=== PATIENT | male | born 1975 | race Caucasian/White ===

== ENCOUNTER 2022-06-04 12:54 | Emergency (ER) | payer OTHER ==
[~2022-06-04] VITALS: Ht 188 cm; Wt 117.9 kg
--- NOTE | 2022-06-04 13:36 | ED General ---
General Chief Complaint: Chest Pain Stated Complaint: CHEST PAIN/NAUSEA/LOWER BACK PAIN Nursing Triage Note: PT AMBULATE TO ROOM 01 WITHOUT DIFFICULTY WITH C/O CHEST PAIN, N/V/D SINCE YESTERDAY. PT REPORTS TAKING IBUPROFEN FOR PAIN YESTERDAY. Source of Information: Patient Exam Limitations: No Limitations History of Present Illness Date Seen by Provider: Jun 04, 2022 Time Seen by Provider: 13:25 Initial Comments Patient is a 46-year-old male who presents to the emergency department for evaluation of both epigastric/lower chest pain that began yesterday as well as right flank pain that acutely began approximate 1 hour prior to arrival. He states the epigastric pain began last night while he and his were out eating. States the pain did not radiate he denies any shortness of air. States that pain is somewhat improved today and rather mild. States the flank pain is much more severe. States he also has pain in his right inguinal area. Denies any urinary symptoms or blood in the urine. States he has had some nausea without emesis that began when the flank pain started. Denies any diaphoresis or dependent edema. No history of heart or lung problems or kidney stones. Allergies and Home Medications Allergies Coded Allergies: No Known Drug Allergies (Unverified , 06/04/22) Patient Home Medication List Home Medication List Reviewed: Yes Hydrocodone Bit/Acetaminophen (HYDROcodone/APAP 5 MG/325 MG TAB) 1 Tab Tab, 1 TAB PO Q4H PRN for PAIN-MODERATE (5-7) Prescribed by: Estrella Herman on 06/04/22 1617 Tamsulosin HCl (Flomax) 0.4 Mg Cap, 0.4 MG PO DAILY Prescribed by: Estrella Herman on 06/04/22 1616 Review of Systems Review of Systems Constitutional: no symptoms reported EENTM: no symptoms reported Respiratory: no symptoms reported Cardiovascular: see HPI, chest pain Gastrointestinal: see HPI, abdominal pain, nausea, vomiting Musculoskeletal: no symptoms reported Skin: no symptoms reported Psychiatric/Neurological: No Symptoms Reported Hematologic/Lymphatic: No Symptoms Reported Immunological/Allergic: no symptoms reported Past Daohbjc-Dqqwql-Rbkzjj Hx Patient Social History Tobacco Use?: Yes Tobacco type used: Cigarettes Smoking Status: Current Everyday Smoker Smokeless Tobacco Frequency: Never a User Use of E-Cig and/or Vaping dev: No Use of E-Cig and/or Vaping Bryan: Never a User Substance use?: No Alcohol Use?: Yes Alcohol Frequency: Daily Physical Exam Vital Signs Vital Signs - First Documented 06/04/22 06/04/22 12:57 16:32 Temp 36.0 Pulse 61 Resp 19 B/P (MAP) 143/94 (110) Pulse Ox 98 O2 Delivery Room Air Capillary Refill : Less Than 3 Seconds Height, Weight, BMI Height: '" Weight: lbs. oz. kg; 33.00 BMI Method: General Appearance: No Apparent Distress, WD/WN HEENT: PERRL/EOMI, TMs Normal, Normal ENT Inspection, Pharynx Normal Neck: Normal Inspection, Non Tender, Supple Respiratory: Chest Non Tender, Lungs Clear, Normal Breath Sounds, No Accessory Muscle Use, No Respiratory Distress Cardiovascular: Regular Rate, Rhythm Gastrointestinal: Soft, Tenderness Extremity: Non Tender, No Calf Tenderness Neurologic/Psychiatric: Alert, Oriented x3, No Motor/Sensory Deficits, Normal Mood/Affect, shipping receiving clerk II-XII Norm as Tested Skin: Normal Color, Warm/Dry Progress/Results/Core Measures Suspected Sepsis SIRS Temperature: Pulse: 61 Respiratory Rate: 19 Laboratory Tests 06/04/22 13:06: White Blood Count 7.5 Blood Pressure 143 /94 Mean: 110 Laboratory Tests 06/04/22 13:06: Creatinine 1.15, INR Comment 1.0, Platelet Count 256, Total Bilirubin 1.0 Results/Orders Lab Results Laboratory Tests Test 06/04/22 13:06 06/04/22 15:15 Range/Units White Blood Count 7.5 4.3-11.0 10^3/uL Red Blood Count 5.16 4.30-5.52 10^6/uL Hemoglobin 15.6 13.3-17.7 g/dL Hematocrit 44 40-54 % Mean Corpuscular Volume 86 80-99 fL Mean Corpuscular Hemoglobin 30 25-34 pg Mean Corpuscular Hemoglobin Concent 35 32-36 g/dL Red Cell Distribution Width 12.5 10.0-14.5 % Platelet Count 256 130-400 10^3/uL Mean Platelet Volume 11.2 9.0-12.2 fL Immature Granulocyte % (Auto) 0 % Neutrophils (%) (Auto) 64 42-75 % Lymphocytes (%) (Auto) 23 12-44 % Monocytes (%) (Auto) 8 0-12 % Eosinophils (%) (Auto) 4 0-10 % Basophils (%) (Auto) 1 0-10 % Neutrophils # (Auto) 4.8 1.8-7.8 10^3/uL Lymphocytes # (Auto) 1.7 1.0-4.0 10^3/uL Monocytes # (Auto) 0.6 0.0-1.0 10^3/uL Eosinophils # (Auto) 0.3 0.0-0.3 10^3/uL Basophils # (Auto) 0.0 0.0-0.1 10^3/uL Immature Granulocyte # (Auto) 0.0 0.0-0.1 10^3/uL Prothrombin Time 14.1 12.2-14.7 SEC INR Comment 1.0 0.8-1.4 Activated Partial Thromboplast Time 26 24-35 SEC Sodium Level 141 135-145 MMOL/L Potassium Level 3.8 3.6-5.0 MMOL/L Chloride Level 108 H 98-107 MMOL/L Carbon Dioxide Level 23 21-32 MMOL/L Anion Gap 10 5-14 MMOL/L Blood Urea Nitrogen 22 H 7-18 MG/DL Creatinine 1.15 0.60-1.30 MG/DL Estimat Glomerular Filtration Rate 79 BUN/Creatinine Ratio 19 Glucose Level 126 H 70-105 MG/DL Calcium Level 9.6 8.5-10.1 MG/DL Corrected Calcium 9.2 8.5-10.1 MG/DL Magnesium Level 1.9 1.6-2.4 MG/DL Total Bilirubin 1.0 0.1-1.0 MG/DL Aspartate Amino Transf (AST/SGOT) 19 5-34 U/L Alanine Aminotransferase (ALT/SGPT) 26 0-55 U/L Alkaline Phosphatase 59 40-136 U/L Troponin I < 0.028 <0.028 NG/ML Total Protein 7.1 6.4-8.2 GM/DL Albumin 4.5 3.2-4.5 GM/DL Urine Color YELLOW Urine Clarity CLEAR Urine pH 6.0 5-9 Urine Specific [place] 1.020 1.016-1.022 Urine Protein 1+ H NEGATIVE Urine Glucose (UA) NEGATIVE NEGATIVE Urine Ketones TRACE H NEGATIVE Urine Nitrite NEGATIVE NEGATIVE Urine Bilirubin NEGATIVE NEGATIVE Urine Urobilinogen 0.2 < = 1.0 MG/DL Urine Leukocyte Esterase NEGATIVE NEGATIVE Urine RBC (Auto) 3+ H NEGATIVE Urine RBC 5-10 H /HPF Urine WBC 2-5 /HPF Urine Squamous Epithelial Cells RARE /HPF Urine Crystals NONE /LPF Urine Bacteria FEW H /HPF Urine Casts NONE /LPF Urine Mucus LARGE H /LPF Urine Culture Indicated YES Micro Results Microbiology 06/04/22 Urine Culture - Final, Complete NO GROWTH My Orders Orders - ESTRELLA HERMAN FOURTH HAND Cbc With Automated Diff (06/04/22 13:31) Magnesium (06/04/22 13:31) Chest 1 View, Ap/Pa Only (06/04/22 13:31) Comprehensive Metabolic Panel (06/04/22 13:31) Protime With Inr (06/04/22 13:31) Partial Thromboplastin Time (06/04/22 13:31) Ed Iv/Invasive Line Start (06/04/22 13:31) Troponin I Taliaferro (06/04/22 13:31) Ua Culture If Indicated (06/04/22 13:31) Ct Abd/Pelvis Wo(Kidney Stone) (06/04/22 13:31) Ketorolac Injection (Toradol Injection) (06/04/22 15:15) Urine Culture (06/04/22 15:15) Medications Given in ED Vital Signs/I&O 06/04/22 06/04/22 12:57 16:32 Temp 36.0 36.7 Pulse 61 94 Resp 19 16 B/P (MAP) 143/94 (110) 137/88 Pulse Ox 98 O2 Delivery Room Air Room Air Capillary Refill : Less Than 3 Seconds Blood Pressure Mean: 110 Progress Note : Progress Note Patient is nontoxic and well-hydrated on exam. No adventitious lung sounds or increased work of breathing noted. Vital signs are reassuring. Patient does have some very mild epigastric tenderness to palpation. He also has more significant right flank tenderness to palpation. Laboratory evaluation overall reassuring. Also has scant hematuria. EKG without acute ischemic change or arrhythmia. Chest x-ray notable for some tortuosity of the aorta. There is no indication this is having any clinical relevance to patient's symptoms at this time. He was informed of these findings and told to follow-up with PCP. Patient had spontaneous improvement in the flank pain. CT scan showed a right mid ureter calculi. This is likely the source of patient's flank pain. Patient was given a dose of ketorolac in the ER. Patient's epigastric pain likely GI in source as it was related to eating and patient did take some antacids afterwards with some improvement in pain noted he will be discharged home with recommendations for supportive care. Anticipatory guidance discussed. Follow- up with PCP. Return precautions for symptomology discussed. Patient verbalized understanding. ECG EKG : EKG Time: 13:00 Rate: 62 Rhythm: Normal Sinus ECG Impression: 1st Degree AV Block Departure Impression Primary Impression: Left ureteral stone Disposition: HOME, SELF-CARE Condition: Stable Departure-Patient Inst. Decision time for Depature: 16:10 Patient Instructions: Kidney Stone, Adult ED Scripts Tamsulosin HCl (Flomax) 0.4 Mg Cap 0.4 MG PO DAILY for 7 Days, #7 CAP 0 Refills Prov: ESTRELLA HERMAN APRN 06/04/22 Hydrocodone Bit/Acetaminophen (HYDROcodone/APAP 5 MG/325 MG TAB) 1 Tab Tab 1 TAB PO Q4H PRN for PAIN-MODERATE (5-7) for 3 Days, #18 TAB 0 Refills Prov: ESTRELLA HERMAN APRN 06/04/22 ESTRELLA HERMAN APRN Jun 04, 2022 13:36
[2022-06-04 13:47] LABS: BASOPHILS % (AUTO) 1 % (0-10); EOSINOPHILS # (AUTO) 0.3 10^3/uL (0.0-0.3); EOSINOPHILS % (AUTO) 4 % (0-10); HEMATOCRIT 44 % (40-54); HEMOGLOBIN 15.6 g/dL (13.3-17.7); LYMPHOCYTES # (AUTO) 1.7 10^3/uL (1.0-4.0); LYMPHOCYTES % (AUTO) 23 % (12-44); MEAN CORPUSCULAR HEMOGLOBIN 30 pg (25-34); MEAN CORPUSCULAR HGB CONC 35 g/dL (32-36); MEAN CORPUSCULAR VOLUME 86 fL (80-99); MEAN PLATELET VOLUME 11.2 fL (9.0-12.2); MONOCYTES # (AUTO) 0.6 10^3/uL (0.0-1.0); MONOCYTES % (AUTO) 8 % (0-12); NEUTROPHILS # (AUTO) 4.8 10^3/uL (1.8-7.8); NEUTROPHILS % (AUTO) 64 % (42-75); PLATELET COUNT 256 10^3/uL (130-400); WHITE BLOOD COUNT 7.5 10^3/uL (4.3-11.0)
[2022-06-04 13:49] LABS: ALBUMIN 4.5 GM/DL (3.2-4.5)
[2022-06-04 13:50] LABS: POTASSIUM 3.8 MMOL/L (3.6-5.0)
[2022-06-04 13:51] LABS: CALCIUM 9.6 MG/DL (8.5-10.1)
[2022-06-04 13:52] LABS: TOTAL PROTEIN 7.1 GM/DL (6.4-8.2)
[2022-06-04 13:54] LABS: PROTHROMBIN TIME PATIENT 14.1 SEC (12.2-14.7)
[2022-06-04 13:56] LABS: CREATININE SERUM 1.15 MG/DL (0.60-1.30)
[2022-06-04 13:59] LABS: MAGNESIUM 1.9 MG/DL (1.6-2.4)
--- NOTE | 2022-06-04 14:19 | Diagnostic Imaging Report ---
Indication: Chest pain. Findings: The lungs are clear, heart size is probably within the upper limits of normal, may be mildly enlarged. There is some prominence of the mediastinal contour along the ascending aorta, this vessel may be tortuous or ectatic. I have no priors to assess its stability. Acute aortic syndrome is among the working diagnostic considerations given its prominence. Consider CT angiogram chest as further evaluation if warranted. No findings of pneumonia, edema or overt failure. Impression: No acute finding apparent but we note prominence of the ascending aortic contour either reflecting a tortuous or ectatic vessel, correlate clinically. Dictated by: Dictated on workstation # [id number]
--- NOTE | 2022-06-04 14:56 | Diagnostic Imaging Report ---
PROCEDURE: CT urinary tract, rule out kidney stone. TECHNIQUE: Multiple contiguous axial images were obtained through the abdomen and pelvis without the use of intravenous contrast. Auto Exposure Controls were utilized during the CT exam to meet ALARA standards for radiation dose reduction. INDICATION: Right flank pain. FINDINGS: There is mild hydronephrosis on the right. There is a 3 mm calculus in the mid right ureter. No calculi are seen within the kidneys. The lung bases are clear. The liver shows a small cyst along the inferior portion measuring 1 cm. Gallbladder is absent. Bile ducts are not dilated. Pancreas is atrophic. Spleen is normal. The adrenal glands are not enlarged. Aorta and abdominal vessels appear normal. The stomach and small bowel are not distended. The colon shows normal stool and gas pattern. There is diverticulosis of the sigmoid colon without diverticulitis. The appendix is visualized and normal. No intra-abdominal adenopathy of pathologic size. No free air or free fluid. IMPRESSION: 1. Mild hydronephrosis right kidney with a 3 mm calculus in the mid right ureter. Dictated by: Dictated on workstation # [id number]
[2022-06-04] MEDS ORDERED: KETOROLAC 15 MG/ML VIAL IVP ONE (15:15)
[2022-06-04 15:27] LABS: BILIRUBIN,URINE NEGATIVE (NEGATIVE); CLARITY,URINE CLEAR; COLOR,URINE YELLOW; GLUCOSE, URINE (UA) NEGATIVE (NEGATIVE); KETONES,URINE TRACE (NEGATIVE); LEUKOCYTE ESTERASE ,URINE NEGATIVE (NEGATIVE); NITRITE,URINE NEGATIVE (NEGATIVE); PROTEIN,URINE 1+ (NEGATIVE)
[2022-06-04 16:00] LABS: BACTERIA,URINE FEW /HPF; SQUAMOUS EPITHELIAL CELL,UR RARE /HPF
[2022-06-04] MEDS ORDERED: ACHD5005 PO (16:16)
[2022-06-04] MEDS ORDERED: TMSL.4C PO (16:16)
[2022-06-04 16:32] VITALS: BP 137/88
== END 2022-06-04 16:33 | disposition home or self-care (01) ==
LOC: ER 12:57
DX: N13.2 Hydronephrosis with renal and ureteral calculous obstruction (principal); Q25.46 Tortuous aortic arch; F17.210 Nicotine dependence, cigarettes, uncomplicated; Z28.310 Unvaccinated for COVID-19
CPT/HCPCS: 36415; 71045; 74176; 80053; 81000; 83735; 84484; 85025; 85610; 85730; 87088; 93005

== ENCOUNTER 2022-08-13 10:50 | Emergency (ER) | payer OTHER ==
[~2022-08-13 10:50] MED LIST: ACHD5005 PO; TMSL.4C PO
[2022-08-13] MEDS ORDERED: NS IV 1000 ML 1,000 ML IV SCH (11:15)
[2022-08-13] MEDS ORDERED: ONDANSETRON 4 MG/2 ML (SDV) Z0FRAN IVP ONE (11:15)
[2022-08-13] MEDS ORDERED: KETOROLAC 30 MG/ML VIAL IVP ONE (11:15)
--- NOTE | 2022-08-13 11:15 | ED GU-Male ---
General Chief Complaint: Back Problems Stated Complaint: LOWER BACK PAIN | POSSIBLE RECURRING KIDNEY STONE Nursing Triage Note: PT AMB TO RM 7 WITH C/O N/V, ABD PAIN AND R FLANK PAIN. PT HAS CYSTOSCOPY SCHEDULED FOR NEXT TUESDAY AT [facility] TO RETREIVE STONE Source: patient Exam Limitations: no limitations History of Present Illness Date Seen by Provider: Aug 13, 2022 Time Seen by Provider: 11:05 Initial Comments 46-year-old male presents the ED with complaints of right flank and right groin pain starting at 2:30 this morning. States he was also having lower abdominal pain that has now dissipated. Also reports nausea and vomiting, and dysuria. States he was diagnosed with a kidney stone in May, does not think that he has passed this kidney stone. He is supposed to see Dr. Quiñonez at [facility] next week for a cystourethroscopy. His urologist is Dr. Young at [facility]. He also complains of right testicle pain, states he did not have this pain previously with a kidney stone. Denies swelling of the testicle. Denies fevers, chest pain, shortness of air, hematuria. Past medical history includes kidney stone, arthritis. Currently takes Flomax and meloxicam. Allergies and Home Medications Allergies Coded Allergies: morphine (Verified Allergy, Unknown, 08/13/22) Patient Home Medication List Home Medication List Reviewed: Yes Hydrocodone Bit/Acetaminophen (HYDROcodone/APAP 5 MG/325 MG TAB) 1 Tab Tab, 1 TAB PO Q4H PRN for PAIN-MODERATE (5-7) Prescribed by: Raheem Herman on 06/04/22 1617 Oxycodone HCl/Acetaminophen (Percocet 5-325 mg Tablet) 5 Mg-325 Mg Tablet, 1 TAB PO Q4H PRN for PAIN-MODERATE Prescribed by: Julissa Alanis on 08/13/22 1233 Tamsulosin HCl (Flomax) 0.4 Mg Cap, 0.4 MG PO DAILY Prescribed by: Raheem Herman on 06/04/22 1616 Discontinued Medications Oxycodone HCl/Acetaminophen (Percocet 5-325 mg Tablet) 5 Mg-325 Mg Tablet, 1 TAB PO Q4H PRN for PAIN-MODERATE Discontinued Reason: Prescription changed Prescribed by: Julissa Alanis on 08/13/22 1225 Oxycodone HCl/Acetaminophen (Percocet 5-325 mg Tablet) 5 Mg-325 Mg Tablet, 1 TAB PO Q4H PRN for PAIN-MODERATE Discontinued Reason: Prescription changed Prescribed by: Julissa Alanis on 08/13/22 1227 Review of Systems Review of Systems Constitutional: see HPI Past Ravqftn-Bkrseb-Zntuwj Hx Patient Social History Tobacco Use?: No Use of E-Cig and/or Vaping dev: No Substance use?: No Alcohol Use?: Yes Alcohol Frequency: Once in a while Pt feels they are or have been: No Immunizations Up To Date Influenza Vaccine Up-to-Date: No; Not Current First/Initial COVID19 Vaccinat: DENIES Past Medical History Surgery/Hospitalization HX: KIDNEY STONES Physical Exam Vital Signs Vital Signs - First Documented 08/13/22 11:00 Temp 36.5 Pulse 74 Resp 18 B/P (MAP) 142/99 (113) Capillary Refill : Height, Weight, BMI Height: '" Weight: lbs. oz. kg; 33.00 BMI Method: General Appearance: WD/WN, mild distress Neck: supple, normal inspection Cardiovascular: regular rate, rhythm, no edema, no gallop, no JVD, no murmur Respiratory: lungs clear, normal breath sounds, no respiratory distress, no accessory muscle use Gastrointestinal: normal bowel sounds, non tender, soft, no organomegaly, no pulsatile mass Male: normal genitalia, testicular tenderness (Right testicle mildly tender to palpation, pain does not improve with elevation of right testicle. Testicles a ppear similar.) Back: normal inspection Extremities: normal range of motion, normal inspection Neurologic/Psychiatric: alert, normal mood/affect Skin: normal color, warm/dry Progress/Results/Core Measures Suspected Sepsis SIRS Temperature: Pulse: 74 Respiratory Rate: 18 Laboratory Tests 08/13/22 11:10: White Blood Count 8.4 Blood Pressure 142 /99 Mean: 113 Laboratory Tests 08/13/22 11:10: Creatinine 1.02, Platelet Count 224, Total Bilirubin 0.8 Results/Orders Lab Results Laboratory Tests Test 08/13/22 11:10 08/13/22 11:40 Range/Units White Blood Count 8.4 4.3-11.0 10^3/uL Red Blood Count 5.30 4.30-5.52 10^6/uL Hemoglobin 16.2 13.3-17.7 g/dL Hematocrit 47 40-54 % Mean Corpuscular Volume 88 80-99 fL Mean Corpuscular Hemoglobin 31 25-34 pg Mean Corpuscular Hemoglobin Concent 35 32-36 g/dL Red Cell Distribution Width 13.2 10.0-14.5 % Platelet Count 224 130-400 10^3/uL Mean Platelet Volume 10.7 9.0-12.2 fL Immature Granulocyte % (Auto) 0 % Neutrophils (%) (Auto) 68 42-75 % Lymphocytes (%) (Auto) 21 12-44 % Monocytes (%) (Auto) 8 0-12 % Eosinophils (%) (Auto) 2 0-10 % Basophils (%) (Auto) 0 0-10 % Neutrophils # (Auto) 5.7 1.8-7.8 10^3/uL Lymphocytes # (Auto) 1.8 1.0-4.0 10^3/uL Monocytes # (Auto) 0.7 0.0-1.0 10^3/uL Eosinophils # (Auto) 0.2 0.0-0.3 10^3/uL Basophils # (Auto) 0.0 0.0-0.1 10^3/uL Immature Granulocyte # (Auto) 0.0 0.0-0.1 10^3/uL Sodium Level 140 135-145 MMOL/L Potassium Level 3.9 3.6-5.0 MMOL/L Chloride Level 109 H 98-107 MMOL/L Carbon Dioxide Level 19 L 21-32 MMOL/L Anion Gap 12 5-14 MMOL/L Blood Urea Nitrogen 24 H 7-18 MG/DL Creatinine 1.02 0.60-1.30 MG/DL Estimat Glomerular Filtration Rate 91 BUN/Creatinine Ratio 24 Glucose Level 132 H 70-105 MG/DL Calcium Level 8.9 8.5-10.1 MG/DL Corrected Calcium 8.6 8.5-10.1 MG/DL Total Bilirubin 0.8 0.1-1.0 MG/DL Aspartate Amino Transf (AST/SGOT) 25 5-34 U/L Alanine Aminotransferase (ALT/SGPT) 28 0-55 U/L Alkaline Phosphatase 52 40-136 U/L Total Protein 7.2 6.4-8.2 GM/DL Albumin 4.4 3.2-4.5 GM/DL Urine Color YELLOW Urine Clarity CLEAR Urine pH 6.0 5-9 Urine Specific [place] >=1.030 1.016-1.022 Urine Protein 2+ H NEGATIVE Urine Glucose (UA) NEGATIVE NEGATIVE Urine Ketones NEGATIVE NEGATIVE Urine Nitrite NEGATIVE NEGATIVE Urine Bilirubin 1+ H NEGATIVE Urine Urobilinogen 0.2 < = 1.0 MG/DL Urine Leukocyte Esterase NEGATIVE NEGATIVE Urine RBC (Auto) 3+ H NEGATIVE Urine RBC >100 H /HPF Urine WBC 0-2 /HPF Urine Squamous Epithelial Cells RARE /HPF Urine Crystals NONE /LPF Urine Bacteria TRACE /HPF Urine Casts NONE /LPF Urine Mucus MODERATE H /LPF Urine Yeast FEW H /HPF Urine Culture Indicated YES My Orders Orders - JULISSA ALANIS APRN Ua Culture If Indicated (08/13/22 10:55) Comprehensive Metabolic Panel (08/13/22 11:12) Cbc With Automated Diff (08/13/22 11:12) Ketorolac Injection (Toradol Injection) (08/13/22 11:15) Ondansetron Injection (Zofran Injectio (08/13/22 11:15) Ed Iv/Invasive Line Start (08/13/22 11:15) Ns Iv 1000 Ml (Sodium Chloride 0.9%) (08/13/22 11:15) Ns Iv 1000 Ml (Sodium Chloride 0.9%) (08/13/22 11:16) Ct Abd/Pelvis Wo(Kidney Stone) (08/13/22 11:24) Fentanyl Inj (Sublimaze Injection) (08/13/22 11:45) Urine Culture (08/13/22 11:40) Medications Given in ED Current Medications Medications Dose Ordered Sig/Foreign Route Start Time Stop Time Status Last Admin Dose Admin Fentanyl Citrate 75 mcg ONCE ONCE IVP 08/13/22 11:45 08/13/22 11:46 DC 08/13/22 11:37 75 MCG Ketorolac Tromethamine 15 mg ONCE ONCE IVP 08/13/22 11:15 08/13/22 11:16 DC 08/13/22 11:19 15 MG Ondansetron HCl 4 mg ONCE ONCE IVP 08/13/22 11:15 08/13/22 11:16 DC 08/13/22 11:19 4 MG Vital Signs/I&O 08/13/22 11:00 Temp 36.5 Pulse 74 Resp 18 B/P (MAP) 142/99 (113) Capillary Refill : Blood Pressure Mean: 113 Progress Note #1: Time: 11:21 Progress Note Patient seen and evaluated, resting in bed, mild distress. Based on exam and symptoms, concern for kidney stone again. Work-up initiated including CBC, CMP, UA with culture, KUB x-ray. Toradol, Zofran, and IV fluids ordered. Considered ultrasound of testicles due to testicular pain, deferred due to normal-appearing testicle, mild tenderness, pain does not change with manipulation of testicle. Progress Note #2: Time: 12:16 Progress Note Labs and CT reviewed. CBC grossly normal, WBC normal at 8.4. CMP shows slig htly elevated chloride 109, slightly decreased CO2 at 19, slightly elevated BUN 24, normal creatinine 1.02, GFR 91, glucose slightly elevated 132. UA shows 3+ RBC, negative leukocytes, negative nitrates, negative bacteria. CT shows 3 to 4 mm right distal ureter stone with moderate hydroureteronephrosis. Also shows uncomplicated diverticulosis without diverticulitis. Results discussed with patient and . Patient instructed to call urology today to see if they want to move up his appointment. Will discharge with Percocet and a urine strainer. Patient and given discharge instructions and return precautions. Diagnostic Imaging Diagonstic Imaging: CT Plain Films/CT/US/NM/MRI: abdomen, pelvis Comments [facility], [place] NAME: JENNIFER STEINER [facility] REC#: [id number] PT STATUS: REG ER : 1975 PHYSICIAN: JULISSA ALANIS APRN ADMIT DATE: 08/13/22/ER Draft Date of Exam:08/13/22 CT ABD/PELVIS WO(KIDNEY STONE) PROCEDURE: CT urinary tract, rule out kidney stone. TECHNIQUE: Multiple contiguous axial images were obtained through the abdomen and pelvis without the use of intravenous contrast. Auto Exposure Controls were utilized during the CT exam to meet ALARA standards for radiation dose reduction. INDICATION: Right groin pain. COMPARISON is made with prior CT 06/04/2022. Tiny nodule adjacent to the fissure right lung base is stable. There are zones of linear atelectasis or scarring in both bases. The liver contains a tiny low-attenuation lesion at the inferior right lobe, stable. The gallbladder is surgically absent. There is no biliary ductal dilatation. The pancreas and spleen are unremarkable. No adrenal mass is detected. Hyperdense nodule upper pole right kidney is stable. No calculi are seen within either kidney. However, there is moderate right-sided hydroureteronephrosis. The dilated right ureter is traced into the pelvis where there is a 3 to 4 mm calculus approximately 2 cm proximal to the UVJ. Bladder is decompressed. Left ureter is unremarkable. Aorta is nonaneurysmal. Bowel loops are normal caliber. There are diverticula within the sigmoid and descending colon but no evidence of acute diverticulitis. There is no ascites. Prostate is unremarkable. Bony structures are nonacute. IMPRESSION: 1. 3 to 4 mm distal right ureteric calculus producing moderate hydroureteronephrosis. 1. Uncomplicated diverticulosis. Dictated on workstation # [id number] Dict: 08/13/22 1154 Trans: 08/13/22 1204 [facility] [id number] Interpreted by: ADELINE POPE MD Electronically signed by: Departure Impression Primary Impression: Right ureteral stone Disposition: 01 HOME, SELF-CARE Condition: Stable Departure-Patient Inst. Decision time for Depature: 12:17 Referrals: CAMILO PRAKASH MD (PCP/Family) Primary Care Physician Patient Instructions: Kidney Stones (DC) Add. Discharge Instructions: Call your urologist today to see if they want to move up your appointment. Continue taking your Flomax as prescribed. Take Percocet as needed for pain. You may also take 800 mg of ibuprofen every 8 hours with food as needed. Strain your urine to catch the kidney stone. You may take the kidney stone into your urologist for testing. Return for fever, vomiting, uncontrolled pain, or any other new, concerning, or worsening symptoms. All discharge instructions reviewed with patient and/or family. Voiced understanding. Scripts Oxycodone HCl/Acetaminophen (Percocet 5-325 mg Tablet) 5 Mg-325 Mg Tablet 1 TAB PO Q4H PRN for PAIN-MODERATE MDD 6 for 3 Days, #18 TAB 0 Refills Prov: JULISSA ALANIS APRN 08/13/22 JULISSA ALANIS APRN Aug 13, 2022 11:15
[2022-08-13] MEDS ORDERED: NS IV 1000 ML 1,000 ML ONE (11:16)
[2022-08-13 11:22] LABS: BASOPHILS % (AUTO) 0 % (0-10); EOSINOPHILS # (AUTO) 0.2 10^3/uL (0.0-0.3); EOSINOPHILS % (AUTO) 2 % (0-10); HEMATOCRIT 47 % (40-54); HEMOGLOBIN 16.2 g/dL (13.3-17.7); LYMPHOCYTES # (AUTO) 1.8 10^3/uL (1.0-4.0); LYMPHOCYTES % (AUTO) 21 % (12-44); MEAN CORPUSCULAR HEMOGLOBIN 31 pg (25-34); MEAN CORPUSCULAR HGB CONC 35 g/dL (32-36); MEAN CORPUSCULAR VOLUME 88 fL (80-99); MEAN PLATELET VOLUME 10.7 fL (9.0-12.2); MONOCYTES # (AUTO) 0.7 10^3/uL (0.0-1.0); MONOCYTES % (AUTO) 8 % (0-12); NEUTROPHILS # (AUTO) 5.7 10^3/uL (1.8-7.8); NEUTROPHILS % (AUTO) 68 % (42-75); PLATELET COUNT 224 10^3/uL (130-400); WHITE BLOOD COUNT 8.4 10^3/uL (4.3-11.0)
[2022-08-13 11:31] LABS: ALBUMIN 4.4 GM/DL (3.2-4.5); POTASSIUM 3.9 MMOL/L (3.6-5.0)
[2022-08-13 11:32] LABS: CALCIUM 8.9 MG/DL (8.5-10.1)
[2022-08-13 11:33] LABS: TOTAL PROTEIN 7.2 GM/DL (6.4-8.2)
[2022-08-13 11:35] LABS: BILIRUBIN,TOTAL 0.8 MG/DL (0.1-1.0)
[2022-08-13 11:37] LABS: CREATININE SERUM 1.02 MG/DL (0.60-1.30)
[2022-08-13] MEDS ORDERED: fentaNYL INJ 100 MCG/2 ML AMP IVP ONE (11:45)
[2022-08-13 11:47] LABS: CLARITY,URINE CLEAR; COLOR,URINE YELLOW; GLUCOSE, URINE (UA) NEGATIVE (NEGATIVE); KETONES,URINE NEGATIVE (NEGATIVE); LEUKOCYTE ESTERASE ,URINE NEGATIVE (NEGATIVE); NITRITE,URINE NEGATIVE (NEGATIVE); PROTEIN,URINE 2+ (NEGATIVE)
[2022-08-13 12:01] LABS: BILIRUBIN,URINE 1+ (NEGATIVE)
[2022-08-13 12:02] LABS: BACTERIA,URINE TRACE /HPF; RBC,URINE >100 /HPF; SQUAMOUS EPITHELIAL CELL,UR RARE /HPF; WBC,URINE 0-2 /HPF
[2022-08-13 12:03] LABS: YEAST,URINE FEW /HPF
--- NOTE | 2022-08-13 12:04 | Diagnostic Imaging Report ---
PROCEDURE: CT urinary tract, rule out kidney stone. TECHNIQUE: Multiple contiguous axial images were obtained through the abdomen and pelvis without the use of intravenous contrast. Auto Exposure Controls were utilized during the CT exam to meet ALARA standards for radiation dose reduction. INDICATION: Right groin pain. COMPARISON is made with prior CT 06/04/2022. Tiny nodule adjacent to the fissure right lung base is stable. There are zones of linear atelectasis or scarring in both bases. The liver contains a tiny low-attenuation lesion at the inferior right lobe, stable. The gallbladder is surgically absent. There is no biliary ductal dilatation. The pancreas and spleen are unremarkable. No adrenal mass is detected. Hyperdense nodule upper pole right kidney is stable. No calculi are seen within either kidney. However, there is moderate right-sided hydroureteronephrosis. The dilated right ureter is traced into the pelvis where there is a 3 to 4 mm calculus approximately 2 cm proximal to the UVJ. Bladder is decompressed. Left ureter is unremarkable. Aorta is nonaneurysmal. Bowel loops are normal caliber. There are diverticula within the sigmoid and descending colon but no evidence of acute diverticulitis. There is no ascites. Prostate is unremarkable. Bony structures are nonacute. IMPRESSION: 1. 3 to 4 mm distal right ureteric calculus producing moderate hydroureteronephrosis. 1. Uncomplicated diverticulosis. Dictated by: Dictated on workstation # [id number]
[2022-08-13] MEDS ORDERED: OXYC-199 PO ×7 (12:20→12:33)
[2022-08-13 12:48] VITALS: BP 136/84
== END 2022-08-13 12:49 | disposition home or self-care (01) ==
LOC: EDUNIT# 10:50 → ER 10:51
DX: N13.2 Hydronephrosis with renal and ureteral calculous obstruction (principal)
CPT/HCPCS: 36415; 74176; 80053; 81000; 85025; 87088

== ENCOUNTER 2022-09-11 01:17 | Emergency (ER) | payer OTHER ==
[~2022-09-11 01:17] MED LIST changes: +OXYC-199 PO
--- NOTE | 2022-09-11 02:02 | ED GU-Male ---
General Chief Complaint: Post OP Complications/Pain Stated Complaint: RIGHT FLANK/GROIN PAIN Nursing Triage Note: TO ED VIA POV AND AMBULATORY TO ROOM 3 WITH C/O RIGHT FLANK PAIN THAT RADIATES TO RIGHT ABD AND GROIN. PT STATES HE HAD STENT REMOVED THIS PAST TUESDAY FROM RIGHT KIDNEY AT [facility] IN [place], [place]. PT STATES AT 1999 HE HAD INCREASED PAIN AND TOOK HYDROCODONE AT 2030 WITHOUT RELIEF. STATES HE HAS NOT HAD TROUBLE URINATING THIS EVENING AND WHEN ASKED FOR URINE SAMPLE STATES, "I CAN'T BECAUSE I'VE BEEN PEEING ALL NIGHT". Source: patient, old records Exam Limitations: no limitations (DIONISIO NASH) History of Present Illness Date Seen by Provider: Sep 11, 2022 Time Seen by Provider: 01:23 Initial Comments Mr. Ayala is a 46 yo M with PMH of surgical removal of stent and stone from the right ureter by Dr. Truong on 09/09/2022 who presents to the ED today with sudden onset of pain from the right flank radiating to RLQ that began about 8pm on 09/10/2022 (about 5hrs ago). He took a dose of hydrocodone with no noticable improvement of pain. He states it feels just like another stone. Denies dysuria, endorses slight hematuria which has been present since the proce dure, endorses low urine output. He denies F/C or cough, endorse nausea and slight [place]. His urologist is Dr. Young. Timing/Duration: this evening Severity/Quality: severe Location: RLQ, right flank Radiation: RLQ Modifying Factors: Worsens With Palpation Associated Symptoms: No dysuria, No fever/chills, No loss of bladder control; lower back pain; No lumps, No mass, No nausea/vomiting, No polyuria, No urinary frequency (DIONISIO NASH) Allergies and Home Medications Allergies Coded Allergies: morphine (Verified Allergy, Unknown, 09/11/22) STATES, "IT PUT ME INTO A COMA" Patient Home Medication List Home Medication List Reviewed: Yes (HELEN CASILLAS MD) Hydrocodone Bit/Acetaminophen (HYDROcodone/APAP 5 MG/325 MG TAB) 1 Tab Tab, 1 TAB PO Q4H PRN for PAIN-MODERATE (5-7) Prescribed by: Raheem Herman on 06/04/22 1617 Oxycodone HCl/Acetaminophen (Percocet 5-325 mg Tablet) 5 Mg-325 Mg Tablet, 1 TAB PO Q4H PRN for PAIN-MODERATE Prescribed by: Julissa Manjarrez on 08/13/22 1233 Tamsulosin HCl (Flomax) 0.4 Mg Cap, 0.4 MG PO DAILY Prescribed by: Raheem Herman on 06/04/22 1616 Review of Systems Review of Systems Constitutional: No chills, No diaphoresis, No fever Respiratory: No cough Cardiovascular: No chest pain, No palpitations Gastrointestinal: nausea; No vomiting Genitourinary: denies burning, denies discharge, denies dysuria, denies frequency; flank pain, hematuria; denies incontinence; pain; denies urgency Musculoskeletal: back pain; No neck pain Skin: No change in color, No lesions, No pruritus, No rash Psychiatric/Neurological: Headache; Denies Weakness (DIONISIO NASH) Past Ffacoah-Tagxyg-Wzlfqb Hx Patient Social History Tobacco Use?: Yes Tobacco type used: Cigarettes Smoking Status: Current Someday Smoker Substance use?: No Alcohol Use?: Yes Alcohol Frequency: Once in a while (DIONISIO NASH) Immunizations Up To Date Influenza Vaccine Up-to-Date: No; Not Current First/Initial COVID19 Vaccinat: DENIES Second COVID19 Vaccination Calvin: DENIES Third COVID19 Vaccination Date: DENIES (DIONISIO NASH) Past Medical History Surgery/Hospitalization HX: KIDNEY STONES (DIONISIO NASH) Physical Exam Vital Signs Vital Signs - First Documented 09/11/22 01:35 Temp 36.9 Pulse 81 Resp 16 B/P (MAP) 148/100 (116) Pulse Ox 94 O2 Delivery Room Air (HELEN CASILLAS MD) Vital Signs Capillary Refill : Less Than 3 Seconds (DIONISIO NASH) Height, Weight, BMI Height: '" Weight: lbs. oz. kg; 33.00 BMI Method: General Appearance: WD/WN, moderate distress HEENT: PERRL/EOMI Neck: non-tender, full range of motion Cardiovascular: no edema, no murmur, tachycardia Respiratory: chest non-tender, lungs clear, normal breath sounds, no respiratory distress Gastrointestinal: soft, tenderness (RLQ) Back: CVA tenderness (R), vertebral tenderness Extremities: normal range of motion, normal capillary refill Neurologic/Psychiatric: alert, oriented x 3 Skin: normal color, warm/dry Lymphatic: no adenopathy (DIONISIO NASH) Progress/Results/Core Measures Suspected Sepsis SIRS Temperature: Pulse: 81 Respiratory Rate: 16 Laboratory Tests 09/11/22 02:00: Blood Pressure 148 /100 Mean: 116 Laboratory Tests 09/11/22 02:00: (DIONISIO NASH) Results/Orders Lab Results Laboratory Tests Test 09/11/22 02:00 09/11/22 02:04 Range/Units White Blood Count 11.0 4.3-11.0 10^3/uL Red Blood Count 4.67 4.30-5.52 10^6/uL Hemoglobin 14.3 13.3-17.7 g/dL Hematocrit 41 40-54 % Mean Corpuscular Volume 88 80-99 fL Mean Corpuscular Hemoglobin 31 25-34 pg Mean Corpuscular Hemoglobin Concent 35 32-36 g/dL Red Cell Distribution Width 12.6 10.0-14.5 % Platelet Count 218 130-400 10^3/uL Mean Platelet Volume 10.8 9.0-12.2 fL Immature Granulocyte % (Auto) 0 % Neutrophils (%) (Auto) 64 42-75 % Lymphocytes (%) (Auto) 24 12-44 % Monocytes (%) (Auto) 10 0-12 % Eosinophils (%) (Auto) 2 0-10 % Basophils (%) (Auto) 0 0-10 % Neutrophils # (Auto) 7.0 1.8-7.8 10^3/uL Lymphocytes # (Auto) 2.7 1.0-4.0 10^3/uL Monocytes # (Auto) 1.1 H 0.0-1.0 10^3/uL Eosinophils # (Auto) 0.2 0.0-0.3 10^3/uL Basophils # (Auto) 0.0 0.0-0.1 10^3/uL Immature Granulocyte # (Auto) 0.0 0.0-0.1 10^3/uL Sodium Level 143 135-145 MMOL/L Potassium Level 4.0 3.6-5.0 MMOL/L Chloride Level 112 H 98-107 MMOL/L Carbon Dioxide Level 19 L 21-32 MMOL/L Anion Gap 12 5-14 MMOL/L Blood Urea Nitrogen 19 H 7-18 MG/DL Creatinine 1.22 0.60-1.30 MG/DL Estimat Glomerular Filtration Rate 73 BUN/Creatinine Ratio 16 Glucose Level 102 70-105 MG/DL Calcium Level 9.0 8.5-10.1 MG/DL Corrected Calcium 8.9 8.5-10.1 MG/DL Total Bilirubin 0.3 0.1-1.0 MG/DL Aspartate Amino Transf (AST/SGOT) 15 5-34 U/L Alanine Aminotransferase (ALT/SGPT) 18 0-55 U/L Alkaline Phosphatase 44 40-136 U/L C-Reactive Protein High Sensitivity 0.65 H 0.00-0.50 MG/DL Total Protein 6.6 6.4-8.2 GM/DL Albumin 4.1 3.2-4.5 GM/DL Serum Alcohol 14 H <10 MG/DL Urine Color YELLOW Urine Clarity CLEAR Urine pH 6.0 5-9 Urine Specific [place] >=1.030 1.016-1.022 Urine Protein 2+ H NEGATIVE Urine Glucose (UA) NEGATIVE NEGATIVE Urine Ketones NEGATIVE NEGATIVE Urine Nitrite NEGATIVE NEGATIVE Urine Bilirubin NEGATIVE NEGATIVE Urine Urobilinogen 0.2 < = 1.0 MG/DL Urine Leukocyte Esterase NEGATIVE NEGATIVE Urine RBC (Auto) 3+ H NEGATIVE Urine RBC 25-50 H /HPF Urine WBC NONE /HPF Urine Squamous Epithelial Cells NONE /HPF Urine Crystals NONE /LPF Urine Bacteria TRACE /HPF Urine Casts NONE /LPF Urine Mucus SMALL H /LPF Urine Culture Indicated NO (HELEN CASILLAS MD) My Orders Orders - HELEN CASILLAS MD Ua Culture If Indicated (09/11/22 01:26) Cbc With Automated Diff (09/11/22 02:04) Comprehensive Metabolic Panel (09/11/22 02:04) Hs C Reactive Protein (09/11/22 02:04) Ed Iv/Invasive Line Start (09/11/22 02:04) Lactated Ringers (Lr 1000 Ml Iv Solution (09/11/22 02:15) Ketorolac Injection (Toradol Injection) (09/11/22 02:15) Ondansetron Injection (Zofran Injectio (09/11/22 02:15) Fentanyl Inj (Sublimaze Injection) (09/11/22 03:00) Alcohol (09/11/22 03:02) (HELEN CASILLAS MD) Medications Given in ED (HELEN CASILLAS MD) Vital Signs/I&O 09/11/22 09/11/22 01:35 04:05 Temp 36.9 36.9 Pulse 81 69 Resp 16 16 B/P (MAP) 148/100 (116) 135/89 Pulse Ox 94 96 O2 Delivery Room Air Room Air (HELEN CASILLAS MD) Vital Signs/I&O Capillary Refill : Less Than 3 Seconds (DIONISIO NASH) Blood Pressure Mean: 116 Progress Note : Progress Note Patient was interviewed and examined by me in addition to MS4. Labs were obtained and reviewed in their entirety including CBC, CMP, CRP, and UA. There was microscopic hematuria without pyuria. No other significant abnormalities were appreciated by my interpretation. Pain was treated with Toradol and Fentanyl. He was hydrated with 1 L LR. Nausea was treated with Zofran. Imaging with CT was offered but patient declined because he was feeling so much better. I also reviewed CT imaging from 1 month ago. The existence of an additional ureteral stone was felt unlikely given not renal calculi noted on the prior CT scan, only the one ureteral stone that has been removed. Patient smelled of alcohol. Patient state he had been at [employer] early in the evening. His blood alcohol content was negligible. (HELEN CASILLAS MD) Departure Impression Primary Impression: Right flank pain Additional Impressions: Postoperative pain History ureteral stone Disposition: HOME, SELF-CARE Condition: Improved Departure-Patient Inst. Decision time for Depature: 03:59 (HELEN CASILLAS MD) Referrals: CAMILO PRAKASH MD (PCP/Family) Primary Care Physician Patient Instructions: Flank Pain, Kidney Stone, Adult ED Add. Discharge Instructions: Continue drinking plenty of clear liquids. You may continue using hydrocodone as prescribed every 4 hours for pain. If necessary, you may add an extra 1/2 tablet every 4 hours for pain not controlled by 1 tablet. Alternatively, you may add some low-dose ibuprofen sparingly. I would suggest using ibuprofen 400 mg 3 times a day if needed for additional pain control. Keep your appointment with the urologist on Tuesday. In the meantime, return to the emergency room if you have worsening symptoms despite following these instructions. Medical Student Attestation and Attending Note: I have personally interviewed and examined this patient along with Dionisio Nsah, MS4. I have reviewed student documentation including history, physical, and assessments. I agree with the documentation except where otherwise noted. Exam: General: Alert, oriented, no acute distress, well developed HEENT: Normocephalic and atraumatic Heart: Regular rate and rhythm without murmur Lungs: Clear to auscultation bilaterally with normal effort Abdomen: Soft, nontender, nondistended, normal bowel sounds Neuropsych: Alert, oriented, no focal deficits Skin: Warm and dry without rashes (HELEN CASILLAS MD) DIONISIO NASH Sep 11, 2022 02:02 HELEN CASILLAS MD Sep 11, 2022 04:00
[2022-09-11 02:10] LABS: BILIRUBIN,URINE NEGATIVE (NEGATIVE); CLARITY,URINE CLEAR; COLOR,URINE YELLOW; GLUCOSE, URINE (UA) NEGATIVE (NEGATIVE); KETONES,URINE NEGATIVE (NEGATIVE); LEUKOCYTE ESTERASE ,URINE NEGATIVE (NEGATIVE); NITRITE,URINE NEGATIVE (NEGATIVE); PROTEIN,URINE 2+ (NEGATIVE)
[2022-09-11 02:12] LABS: BASOPHILS % (AUTO) 0 % (0-10); EOSINOPHILS # (AUTO) 0.2 10^3/uL (0.0-0.3); EOSINOPHILS % (AUTO) 2 % (0-10); HEMATOCRIT 41 % (40-54); HEMOGLOBIN 14.3 g/dL (13.3-17.7); LYMPHOCYTES # (AUTO) 2.7 10^3/uL (1.0-4.0); LYMPHOCYTES % (AUTO) 24 % (12-44); MEAN CORPUSCULAR HEMOGLOBIN 31 pg (25-34); MEAN CORPUSCULAR HGB CONC 35 g/dL (32-36); MEAN CORPUSCULAR VOLUME 88 fL (80-99); MEAN PLATELET VOLUME 10.8 fL (9.0-12.2); MONOCYTES # (AUTO) 1.1 10^3/uL (0.0-1.0); MONOCYTES % (AUTO) 10 % (0-12); NEUTROPHILS % (AUTO) 64 % (42-75); PLATELET COUNT 218 10^3/uL (130-400)
[2022-09-11] MEDS ORDERED: ONDANSETRON 4 MG/2 ML (SDV) Z0FRAN IVP ONE (02:15)
[2022-09-11] MEDS ORDERED: KETOROLAC 30 MG/ML VIAL IVP ONE (02:15)
[2022-09-11] MEDS ORDERED: LACTATED RINGERS 1,000 ML IV ONE (02:15)
[2022-09-11 02:16] LABS: ALBUMIN 4.1 GM/DL (3.2-4.5)
[2022-09-11 02:19] LABS: BACTERIA,URINE TRACE /HPF; RBC,URINE 25-50 /HPF
[2022-09-11 02:19] LABS: TOTAL PROTEIN 6.6 GM/DL (6.4-8.2)
[2022-09-11 02:21] LABS: BILIRUBIN,TOTAL 0.3 MG/DL (0.1-1.0)
[2022-09-11 02:23] LABS: CREATININE SERUM 1.22 MG/DL (0.60-1.30)
[2022-09-11] MEDS ORDERED: fentaNYL INJ 100 MCG/2 ML AMP IVP ONE (03:00)
[2022-09-11 04:05] VITALS: BP 135/89
== END 2022-09-11 04:05 | disposition home or self-care (01) ==
LOC: EDUNIT# 01:17 → ER 01:19
DX: G89.18 Other acute postprocedural pain (principal); R10.31 Right lower quadrant pain; R11.0 Nausea; R31.29 Other microscopic hematuria; F17.210 Nicotine dependence, cigarettes, uncomplicated; Z87.442 Personal history of urinary calculi; Z28.310 Unvaccinated for COVID-19; Z88.5 Allergy status to narcotic agent
CPT/HCPCS: 80053; 81000; 85025; 86141; 99284; G0480; 36415; 80320

== ENCOUNTER 2023-01-01 12:25 | Emergency (ER) | payer OTHER, BC ==
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
[2023-01-01 13:40] VITALS: BP 125/90
== END 2023-01-01 13:40 ==
LOC: EDUNIT# 12:25 → ER 12:28
DX: M25.511 Pain in right shoulder (principal); F17.210 Nicotine dependence, cigarettes, uncomplicated; Z28.310 Unvaccinated for COVID-19; V89.2XXA Person injured in unspecified motor-vehicle accident, traffic, initial encounter; Y92.410 Unspecified street and highway as the place of occurrence of the external cause
CPT/HCPCS: 73030; 99281

== ENCOUNTER → 2023-01-12 | Outpatient (CLI) | payer OTHER, BC ==
--- NOTE | 2023-01-12 11:25 | Diagnostic Imaging Report ---
INDICATION: Pain. Frontal lateral and bilateral oblique cervical radiographs are performed. Oblique view showed no bony encroachment upon the neural foramen. The vertebral statures are normal. The alignment anatomic. There is very mild mid cervical degenerative disc space narrowing. No facet dislocation. No bony destruction and no fracture. IMPRESSION: Mild degenerative changes aligned anatomically with no acute or suspicious abnormality. Dictated by: Dictated on workstation # [id number]
== END ==
LOC: ORTHO 08:59
PROVIDERS: ATTEND Orthopaedic Surgery
DX: M47.22 Other spondylosis with radiculopathy, cervical region (principal)
CPT/HCPCS: 72050; G0463; 99203

== ENCOUNTER → 2023-02-07 | Outpatient (CLI) | payer OTHER, BC ==
[~2023-02-07] VITALS: Ht 177.8 cm; Wt 115.7 kg
[~2023-02-07] MED LIST changes: +GADOTERATE 0.5 MMOL/ML (CLARISCAN) 15 ML VIAL IV ONE; +IOHEXOL 300 MG/ML 50 ML (OMNIPAQUE 300) VIAL IV ONE; +LIDOCAINE 1% INJ 10 ML VIAL INJ ONE; +LIDOCAINE 1% INJ 10 ML VIAL ONE
--- NOTE | 2023-02-07 11:24 | Diagnostic Imaging Report ---
INDICATION: Right shoulder injury. Patient was brought to the procedure room, placed on the table in the supine position. Right shoulder was prepped and draped in usual sterile fashion. Small amount of 1% lidocaine was utilized for local anesthesia. A 22-gauge needle was advanced to the right shoulder and placed with its tip at the rotator interval. A 15 mL solution of iodinated contrast, normal saline and gadolinium was injected under fluoroscopic observation. 10 seconds of fluoroscopic time was utilized. Reference air kerma is 18.0 mGy. Two images were obtained demonstrating contrast within the right shoulder joint. IMPRESSION: Right shoulder injection of gadolinium contrast solution, using fluoroscopy. Dictated by: Dictated on workstation # [id number]
--- NOTE | 2023-02-07 11:27 | Diagnostic Imaging Report ---
EXAMINATION: Magnetic resonance imaging of the right shoulder with intra-articular contrast. DATE: February 07, 2023. COMPARISON: Right shoulder arthrogram February 07, 2023. Right shoulder radiographs January 01, 2023. HISTORY: 47-year-old male, right shoulder pain. TECHNIQUE: Magnetic Resonance Imaging sequences were performed of the shoulder following the intra-articular administration of contrast. FINDINGS: ROTATOR CUFF, LIGAMENTS, TENDONS, AND MUSCLES: The supraspinatus, infraspinatus, teres minor, and subscapularis tendons and muscles are intact. There is normal rotator cuff muscle bulk and signal. LONG HEAD OF BICEPS: The biceps labral attachment and long head of the biceps tendon is intact. The long head of the biceps tendon is normally positioned within the bicipital groove. GLENOHUMERAL JOINT: The humeral head is well positioned relative to the glenoid. There is some irregularity of the mid anterior labrum without a discrete anterior labral tear. There is no identified paralabral cyst. The articular cartilage is grossly intact. There is no intra-articular body or prominent synovitis. The inferior glenohumeral ligament complex is intact. ACROMIOCLAVICULAR JOINT: The acromioclavicular joint is normally aligned. The coracoclavicular and coracoacromial ligaments are intact. There are no degenerative changes of the acromioclavicular joint. BONE: There is no os acromiale. There is no Hill-Sachs deformity. There is no acute fracture, bone contusion, or evidence of osteonecrosis. BURSAE AND SOFT TISSUES: The bursae and soft tissue surrounding the shoulder are unremarkable. IMPRESSION: 1. Irregularity of the mid anterior labrum without otherwise identified potential labral tear. No paralabral cyst. Intact articular cartilage. 2. No acute fracture or bone contusion. Normal bone morphology. 3. Intact rotator cuff and proximal long head of biceps tendon. 4. Intact acromioclavicular joint. Dictated by: Dictated on workstation # [id number]
== END ==
LOC: RAD 09:01
PROVIDERS: ATTEND Orthopaedic Surgery
DX: S43.431A Superior glenoid labrum lesion of right shoulder, initial encounter (principal); X58.XXXA Exposure to other specified factors, initial encounter
CPT/HCPCS: 23350; 73040; 73222

== ENCOUNTER 2023-03-11 09:02 | Outpatient (RCR) | payer OTHER, BC ==
[~2023-03-11 09:02] MED LIST changes: -GADOTERATE 0.5 MMOL/ML (CLARISCAN) 15 ML VIAL IV ONE; -IOHEXOL 300 MG/ML 50 ML (OMNIPAQUE 300) VIAL IV ONE; -LIDOCAINE 1% INJ 10 ML VIAL INJ ONE; -LIDOCAINE 1% INJ 10 ML VIAL ONE
== END 2023-03-19 | disposition home or self-care (01) ==
PROVIDERS: ATTEND Orthopaedic Surgery
DX: M25.511 Pain in right shoulder (principal)

== ENCOUNTER 2023-04-07 08:45 | Outpatient (RCR) | payer OTHER, BC | END 2023-04-19 | disposition home or self-care (01) | PROVIDERS: ATTEND Orthopaedic Surgery | DX: M25.511 Pain in right shoulder (principal) ==

== ENCOUNTER 2023-05-06 09:22 | Outpatient (RCR) | payer OTHER, BC | END 2023-05-19 | disposition home or self-care (01) | PROVIDERS: ATTEND Orthopaedic Surgery | DX: M25.511 Pain in right shoulder (principal) ==

== ENCOUNTER 2023-05-30 11:04 | Emergency (ER) | payer BC ==
[~2023-05-30] VITALS: Ht 187 cm; Wt 120.0 kg
[2023-05-30] MEDS ORDERED: NS IV 1000 ML 1,000 ML IV SCH (11:30)
[2023-05-30] MEDS ORDERED: diazePAM INJ 10 MG/2 ML syringe IVP ONE (11:30)
[2023-05-30 11:35] LABS: BASOPHILS % (AUTO) 1 % (0-10); EOSINOPHILS # (AUTO) 0.2 10^3/uL (0.0-0.3); EOSINOPHILS % (AUTO) 4 % (0-10); HEMATOCRIT 46 % (40-54); LYMPHOCYTES # (AUTO) 1.6 10^3/uL (1.0-4.0); LYMPHOCYTES % (AUTO) 28 % (12-44); MEAN CORPUSCULAR HEMOGLOBIN 31 pg (25-34); MEAN CORPUSCULAR HGB CONC 35 g/dL (32-36); MEAN CORPUSCULAR VOLUME 88 fL (80-99); MEAN PLATELET VOLUME 10.1 fL (9.0-12.2); MONOCYTES # (AUTO) 0.5 10^3/uL (0.0-1.0); MONOCYTES % (AUTO) 9 % (0-12); NEUTROPHILS # (AUTO) 3.4 10^3/uL (1.8-7.8); NEUTROPHILS % (AUTO) 59 % (42-75); PLATELET COUNT 233 10^3/uL (130-400); WHITE BLOOD COUNT 5.7 10^3/uL (4.3-11.0)
--- NOTE | 2023-05-30 11:38 | ED General ---
General Chief Complaint: Dizziness/Syncope Stated Complaint: DIZZINESS | NAUSEA Nursing Triage Note: PT STATES HE WOKE UP YESTERDAY AND WAS DIZZY, VOMITED, FEELS LIKE HE IS SPINNING. HAS HAD A COLD FOR A MONTH. Source of Information: Patient Exam Limitations: No Limitations History of Present Illness Date Seen by Provider: May 30, 2023 Time Seen by Provider: 11:16 Initial Comments 47-year-old male who is otherwise healthy presents to the emergency department today for dizziness. He tells me has had a "cold" for 1 month. This consists of dry cough, nasal congestion and some intermittent body aches and chills. He woke up yesterday and described dizziness, room spinning sensation with some nausea and vomiting x 2. He states he is feeling slightly better today however he still feels like the room is spinning. He denies any changes in his vision. No upper or lower extremity weakness numbness or tingling. No ear pain, drainage. All other systems reviewed and negative except documented per HPI. Voice recognition software was used to help create this chart Allergies and Home Medications Allergies Coded Allergies: morphine (Verified Allergy, Unknown, 09/11/22) STATES, "IT PUT ME INTO A COMA" Patient Home Medication List Home Medication List Reviewed: Yes Diazepam (Valium) 5 Mg Tablet, 5 MG PO TID Prescribed by: OXANA PIMENTEL MD on 05/30/23 1225 Doxycycline Hyclate (Doxycycline Hyclate) 100 Mg Capsule, 100 MG PO BID Prescribed by: OXANA PIMENTEL MD on 05/30/23 1230 Hydrocodone Bit/Acetaminophen (HYDROcodone/APAP 5 MG/325 MG TAB) 1 Tab Tab, 1 TAB PO Q4H PRN for PAIN-MODERATE (5-7) Prescribed by: Raheem Herman on 06/04/22 1617 Oxycodone HCl/Acetaminophen (Percocet 5-325 mg Tablet) 5 Mg-325 Mg Tablet, 1 TAB PO Q4H PRN for PAIN-MODERATE Prescribed by: Julissa Manjarrez on 08/13/22 1233 Tamsulosin HCl (Flomax) 0.4 Mg Cap, 0.4 MG PO DAILY Prescribed by: Raheem Herman on 06/04/22 1616 Review of Systems Review of Systems Constitutional: see HPI Past Hwljkxz-Mbllpy-Lizhln Hx Patient Social History Tobacco Use?: Yes Tobacco type used: Cigarettes Smoking Status: Current Everyday Smoker Substance use?: No Alcohol Use?: Yes Alcohol type: Beer, Hard Liquor, Wine Alcohol Frequency: Once in a while Immunizations Up To Date First/Initial COVID19 Vaccinat: DENIES Second COVID19 Vaccination Calvin: DENIES Third COVID19 Vaccination Date: DENIES Past Medical History Surgery/Hospitalization HX: KIDNEY STONES, ARTHRITIS, HAYDEE Physical Exam Vital Signs Vital Signs - First Documented 05/30/23 11:07 Temp 36.2 Pulse 73 Resp 20 B/P (MAP) 121/89 (100) Pulse Ox 94 O2 Delivery Room Air Capillary Refill : Height, Weight, BMI Height: '" Weight: lbs. oz. kg; 34.00 BMI Method: General Appearance: No Apparent Distress, WD/WN Eyes: Bilateral Eye Normal Inspection, Bilateral Eye PERRL, Bilateral Eye EOMI HEENT: PERRL/EOMI, TMs Normal, Normal ENT Inspection, Pharynx Normal Neck: Normal Inspection, Non Tender, Supple, Other (Mild anterior cervical lymphadenopathy bilaterally) Respiratory: Chest Non Tender, Lungs Clear, Normal Breath Sounds, No Accessory Muscle Use, No Respiratory Distress Cardiovascular: Regular Rate, Rhythm, No Murmur, Normal Peripheral Pulses Gastrointestinal: No Organomegaly, Non Tender, Soft Extremity: Normal Capillary Refill, Normal Inspection, Non Tender, No Calf Tenderness Neurologic/Psychiatric: Alert, Oriented x3, Normal Mood/Affect Skin: Normal Color, Warm/Dry Progress/Results/Core Measures Suspected Sepsis SIRS Temperature: Pulse: 73 Respiratory Rate: 20 Laboratory Tests 05/30/23 11:25: White Blood Count 5.7 Blood Pressure 121 /89 Mean: 100 Laboratory Tests 05/30/23 11:25: Creatinine 0.81, Platelet Count 233, Total Bilirubin 1.1H Results/Orders Lab Results Laboratory Tests Test 05/30/23 11:25 05/30/23 11:40 Range/Units White Blood Count 5.7 4.3-11.0 10^3/uL Red Blood Count 5.20 4.30-5.52 10^6/uL Hemoglobin 16.0 13.3-17.7 g/dL Hematocrit 46 40-54 % Mean Corpuscular Volume 88 80-99 fL Mean Corpuscular Hemoglobin 31 25-34 pg Mean Corpuscular Hemoglobin Concent 35 32-36 g/dL Red Cell Distribution Width 12.6 10.0-14.5 % Platelet Count 233 130-400 10^3/uL Mean Platelet Volume 10.1 9.0-12.2 fL Immature Granulocyte % (Auto) 0 % Neutrophils (%) (Auto) 59 42-75 % Lymphocytes (%) (Auto) 28 12-44 % Monocytes (%) (Auto) 9 0-12 % Eosinophils (%) (Auto) 4 0-10 % Basophils (%) (Auto) 1 0-10 % Neutrophils # (Auto) 3.4 1.8-7.8 10^3/uL Lymphocytes # (Auto) 1.6 1.0-4.0 10^3/uL Monocytes # (Auto) 0.5 0.0-1.0 10^3/uL Eosinophils # (Auto) 0.2 0.0-0.3 10^3/uL Basophils # (Auto) 0.0 0.0-0.1 10^3/uL Immature Granulocyte # (Auto) 0.0 0.0-0.1 10^3/uL Sodium Level 142 135-145 MMOL/L Potassium Level 3.9 3.6-5.0 MMOL/L Chloride Level 108 H 98-107 MMOL/L Carbon Dioxide Level 23 21-32 MMOL/L Anion Gap 11 5-14 MMOL/L Blood Urea Nitrogen 18 7-18 MG/DL Creatinine 0.81 0.60-1.30 MG/DL Estimat Glomerular Filtration Rate 108 BUN/Creatinine Ratio 22 Glucose Level 105 70-105 MG/DL Calcium Level 9.4 8.5-10.1 MG/DL Corrected Calcium 9.1 8.5-10.1 MG/DL Magnesium Level 2.2 1.6-2.4 MG/DL Total Bilirubin 1.1 H 0.1-1.0 MG/DL Aspartate Amino Transf (AST/SGOT) 23 5-34 U/L Alanine Aminotransferase (ALT/SGPT) 33 0-55 U/L Alkaline Phosphatase 55 40-136 U/L Total Protein 7.2 6.4-8.2 GM/DL Albumin 4.4 3.2-4.5 GM/DL Influenza Type A (RT-PCR) Not Detected Not Detecte Influenza Type B (RT-PCR) Not Detected Not Detecte SARS-CoV-2 RNA (RT-PCR) Not Detected Not Detecte My Orders Orders - MICHELLE PIMENTELNETH L DO Comprehensive Metabolic Panel (05/30/23 11:22) Magnesium (05/30/23 11:22) Ekg Tracing (05/30/23 11:22) Cbc And Automated Diff (05/30/23 11:22) Ns Iv 1000 Ml (Ns Iv 1000 Ml) (05/30/23 11:30) Diazepam Injection (Diazepam Injection (05/30/23 11:30) Ed Iv/Invasive Line Start (05/30/23 11:22) Covid 19 Inhouse Test (05/30/23 11:35) Influenza A And B By Pcr (05/30/23 11:35) Chest 1 View, Ap/Pa Only (05/30/23 11:38) Acetaminophen Tablet (Acetaminophen Ta (05/30/23 12:00) Medications Given in ED Current Medications Medications Dose Ordered Sig/Foreign Route Start Time Stop Time Status Last Admin Dose Admin Acetaminophen 1,000 mg ONCE ONCE PO 05/30/23 12:00 05/30/23 12:01 DC 05/30/23 12:16 1,000 MG Diazepam 2 mg ONCE ONCE IVP 05/30/23 11:30 05/30/23 11:31 DC 05/30/23 11:43 2 MG Vital Signs/I&O 05/30/23 05/30/23 05/30/23 05/30/23 11:07 11:43 12:16 13:09 Temp 36.2 36.2 36.2 36.2 Pulse 73 63 Resp 20 20 B/P (MAP) 121/89 (100) 113/76 Pulse Ox 94 95 O2 Delivery Room Air Room Air Capillary Refill : Blood Pressure Mean: 100 ECG Comment Sinus rhythm with a rate of 63 bpm. Slightly prolonged [place] interval at 254. Left axis deviation. No ST or T wave abnormalities. No ectopy. No STEMI. Departure Communication (Admissions) Patient is hemodynamically stable with a normal neurologic exam. Vital signs and exam are reassuring. Labs are unremarkable. I gave him some IV fluids and some Valium which did help with his symptoms. He is ambulatory without difficulty has no focal neurologic deficits. Given his recent viral type URI I think this is likely peripheral vertigo. COVID and flu testing are negative. Chest x-ray shows no evidence for pneumonia. Given his otherwise stable. To be discharged home with p.o. Valium and close follow-up. He is comfortable agreeable plan of care. Impression Primary Impression: Vertigo Additional Impression: Bronchitis Disposition: HOME, SELF-CARE Condition: Stable Departure-Patient Inst. Referrals: KETAN ANDREWS DO (PCP/Family) Primary Care Physician Patient Instructions: Vertigo ED Add. Discharge Instructions: You were seen in the emergency department for dizziness. I believe this is related to your recent viral upper respiratory infection. Your chest x-ray is clear showing no evidence for pneumonia however given your symptoms duration you may have continued bronchitis we will go ahead and treat you with antibiotics. Take them as prescribed until they are gone. I recommend you use Flonase, 2 sprays in each nostril twice a day once in the morning and once in the evening. Take the Valium as needed for dizziness. Do not drive or make important decisions while taking it as it may make you drowsy. Follow-up with your primary doctor should your symptoms persist. Return to the emergency department for any severe concerns. All discharge instructions reviewed with patient and/or family. Voiced understanding. Scripts Doxycycline Hyclate (Doxycycline Hyclate) 100 Mg Capsule 100 MG PO BID for 7 Days, #14 CAP Prov: OXANA PIMENTEL DO 05/30/23 Diazepam (Valium) 5 Mg Tablet 5 MG PO TID for Vertigo for 3 Days, #9 TAB Prov: OXANA PIMENTEL DO 05/30/23 OXANA PIMENTEL DO May 30, 2023 11:38
[2023-05-30 11:52] LABS: ALBUMIN 4.4 GM/DL (3.2-4.5)
[2023-05-30 11:53] LABS: POTASSIUM 3.9 MMOL/L (3.6-5.0)
[2023-05-30 11:54] LABS: CALCIUM 9.4 MG/DL (8.5-10.1)
[2023-05-30 11:55] LABS: TOTAL PROTEIN 7.2 GM/DL (6.4-8.2)
[2023-05-30 11:57] LABS: BILIRUBIN,TOTAL 1.1 MG/DL (0.1-1.0)
[2023-05-30 11:59] LABS: CREATININE SERUM 0.81 MG/DL (0.60-1.30)
[2023-05-30] MEDS ORDERED: ACETAMINOPHEN 500 MG TABLET PO ONE (12:00)
[2023-05-30 12:02] LABS: MAGNESIUM 2.2 MG/DL (1.6-2.4)
--- NOTE | 2023-05-30 12:17 | Diagnostic Imaging Report ---
INDICATION: Cough and chills. TECHNIQUE: Frontal chest obtained at 11:47 a.m. FINDINGS: There is cardiomegaly. There is no focal infiltrate or pneumothorax or pleural fluid. IMPRESSION: Cardiomegaly with no acute process in the chest. Dictated by: Dictated on workstation # [id number]
[2023-05-30] MEDS ORDERED: DIAZ5TAB PO (12:25)
[2023-05-30] MEDS ORDERED: DOXY100C5 PO (12:30)
[2023-05-30 13:09] VITALS: BP 113/76
== END 2023-05-30 13:08 | disposition home or self-care (01) ==
LOC: EDUNIT# 11:04 → ER 11:06
DX: J40 Bronchitis, not specified as acute or chronic (principal); R42 Dizziness and giddiness; F17.210 Nicotine dependence, cigarettes, uncomplicated; Z28.311 Partially vaccinated for COVID-19
CPT/HCPCS: 36415; 71045; 80053; 83735; 85025; 87636; 93005